=== PATIENT | female | born 1995 | race Caucasian/White ===

== ENCOUNTER 2024-07-21 08:32 | Emergency (ER) | payer OTHER ==
[~2024-07-21] VITALS: Ht 157.5 cm; Wt 68.4 kg
[2024-07-21 08:33] VITALS: O2SAT 98
[2024-07-21 08:36] VITALS: BP 115/78; PULSE 62; RESP 16; TEMP 36.5; O2SAT 100
[2024-07-21] MEDS: ACETAMINOPHEN 325MG TABLET PO ONE (09:45)
[2024-07-21] MEDS ORDERED: IBUP-2030 MT (11:01)
[2024-07-21] MEDS ORDERED: TOPUD PO (11:01)
== END 2024-07-21 11:13 | disposition home or self-care (01) ==
LOC: ER 08:32
DX: M54.50 Low back pain, unspecified (principal); Z79.899 Other long term (current) drug therapy
CPT/HCPCS: 72100; 81025; 99283